=== PATIENT | female | born 1990 | race Two or more races ===

== ENCOUNTER 2022-09-28 12:10 | Observation (INO) | payer MEDICAID ==
[~2022-09-28] VITALS: Ht 157.5 cm; Wt 81.6 kg
== END 2022-09-28 13:30 | disposition home or self-care (01) ==
LOC: UNDOADMOB 12:10 → LDRP 12:10 → UNDODISOB 13:30
PROVIDERS: ADMIT Obstetrics & Gynecology; ATTEND Obstetrics & Gynecology
DX: O26.892 Other specified pregnancy related conditions, second trimester (principal); R10.2 Pelvic and perineal pain; R10.30 Lower abdominal pain, unspecified; Z3A.26 26 weeks gestation of pregnancy
CPT/HCPCS: 59025; 81002; G0378

== ENCOUNTER 2023-04-02 21:23 | Inpatient (IN) | payer MEDICAID ==
[~2023-04-02] VITALS: Ht 157.5 cm; Wt 71.3 kg
[2023-04-02 22:03] LABS: Basophils # (auto) 0 10 ^3/uL (0-0.2); Basophils % (auto) 0.2 % (0.0-2.0); Eosinophils # (auto) 0 10 ^3/uL (0-0.8); Hematocrit 40.7 % (36.0-46.0); Hemoglobin 13.5 g/dL (12.2-16.2); Lymphocytes # (auto) 1.4 10 ^3/uL (0.4-5.4); Lymphocytes % (auto) 8.4 % (10.0-50.0); Mean Corpuscular Hemoglobin 28.5 pg (28.0-32.0); Mean Corpuscular Hgb Conc. 33.1 g/dL (32.0-36.0); Mean Corpuscular Volume 86.2 fL (80.0-100.0); Monocytes # (auto) 0.6 10 ^3/uL (0-1.3); Monocytes % (auto) 3.5 % (0.0-12.0); Neutrophils # (auto) 14.1 10 ^3/uL (1.6-8.6); Neutrophils % (auto) 87.9 % (37.0-80.0); Red Blood Cells 4.73 10^6/uL (4.0-5.20); Red Cell Distribution Width 15.3 % (11.8-14.3); White Blood Cell 16.1 10^3/uL (4.4-10.8)
[2023-04-02] MEDS: SODIUM CHLORIDE 0.9% 1,000 ML IV ONE (22:06)
[2023-04-02 22:12] LABS: Chloride 107 mmol/L (98-107); Potassium 3.1 mmol/L (3.5-5.1); Sodium 135 mmol/L (136-145)
[2023-04-02 22:13] LABS: Anion Gap 9 (5-15); Calcium 9.6 mg/dL (8.5-10.1); Carbon Dioxide 19 mmol/L (20-30)
[2023-04-02 22:18] LABS: BUN/Creatinine Ratio 11.1 (10.0-20.0); Blood Urea Nitrogen 8 mg/dL (9-23); Glucose 104 mg/dL (74-106)
[2023-04-02 22:22] VITALS: PULSE 103; RESP 16; O2SAT 96
[2023-04-02] MEDS: cefTRIAXone 1GM/50ML D5W 50 ML IV ONE (22:54)
[2023-04-02 23:19] LABS: Urine Bacteria NONE SEEN /hpf (None Seen); Urine Blood Negative /uL (Negative); Urine Clarity Clear (Clear); Urine Color Colorless (Yellow); Urine Protein, UAD Negative (Negative); Urine Specific Gravity 1.004 (1.001-1.035); Urine Urobilinogen Normal (Negative); Urine WBC 1 /hpf (0 - 5)
[2023-04-02 23:46] LABS: COVID19 ANTIGEN SOFIA FIA NEGATIVE (NEGATIVE)
[2023-04-03] MEDS: ONDANSETRON HCL 4 MG/2 ML VIAL IV ONE (00:20)
[2023-04-03] MEDS: MORPHINE SULFATE INJ 2 MG/ml SYRG IV ONE (00:24)
[2023-04-03] MEDS: POTASSIUM CHL 20MEQ/100ML 100 ML IV ONE (01:00)
[2023-04-03] MEDS ORDERED: ONDANSETRON HCL 4 MG/2 ML VIAL IV PRN (05:30)
[2023-04-03] MEDS ORDERED: MORPHINE SULFATE INJ 2 MG/ml SYRG IV PRN (05:30)
[2023-04-03] MEDS ORDERED: NITROGLYCERIN 0.4 MG SL TAB SL PRN (05:30)
[2023-04-03] MEDS: LACTATED RINGER'S 1,000 ML IV ONE (05:51)
[2023-04-03] MEDS: ACETAMINOPHEN 325 MG TAB PO PRN (05:53)
[2023-04-03 07:30] VITALS: PULSE 99; RESP 16; O2SAT 96
[2023-04-03] MEDS: IBUPROFEN 600 MG TAB PO ONE (09:35)
[2023-04-03 19:27] VITALS: PULSE 80; RESP 11; O2SAT 98
[2023-04-03] MEDS: cefTRIAXone 1GM/50ML D5W 50 ML IV SCH (23:13)
[2023-04-04 00:05] VITALS: BP 103/61; PULSE 76; RESP 17; TEMP 98.3; O2SAT 97
[2023-04-04] MEDS: TEMAZEPAM 15 MG CAP PO PRN (00:13)
[2023-04-04 05:00] VITALS: BP 130/73; PULSE 82; RESP 18; TEMP 98.2; O2SAT 98
[2023-04-04 06:21] LABS: Basophils # (auto) 0 10 ^3/uL (0-0.2); Basophils % (auto) 0.3 % (0.0-2.0); Eosinophils # (auto) 0.2 10 ^3/uL (0-0.8); Eosinophils % (auto) 1.4 % (0.0-7.0); Hematocrit 35.3 % (36.0-46.0); Hemoglobin 11.7 g/dL (12.2-16.2); Lymphocytes # (auto) 2.6 10 ^3/uL (0.4-5.4); Lymphocytes % (auto) 22.5 % (10.0-50.0); Mean Corpuscular Hemoglobin 28.5 pg (28.0-32.0); Mean Corpuscular Hgb Conc. 33.1 g/dL (32.0-36.0); Monocytes # (auto) 0.9 10 ^3/uL (0-1.3); Monocytes % (auto) 7.5 % (0.0-12.0); Neutrophils # (auto) 7.9 10 ^3/uL (1.6-8.6); Neutrophils % (auto) 68.3 % (37.0-80.0); Red Cell Distribution Width 15.2 % (11.8-14.3); White Blood Cell 11.5 10^3/uL (4.4-10.8)
[2023-04-04 06:26] LABS: Chloride 111 mmol/L (98-107); Potassium 3.7 mmol/L (3.5-5.1); Sodium 142 mmol/L (136-145)
[2023-04-04 06:27] LABS: Anion Gap 6 (5-15); Calcium 9.2 mg/dL (8.5-10.1); Carbon Dioxide 25 mmol/L (20-30)
[2023-04-04 06:32] LABS: BUN/Creatinine Ratio 12.3 (10.0-20.0); Blood Urea Nitrogen 7 mg/dL (9-23); Glucose 82 mg/dL (74-106)
[2023-04-04 08:00] VITALS: PULSE 78; RESP 18; O2SAT 96
[2023-04-04 09:00] VITALS: BP 108/71; PULSE 78; RESP 17; TEMP 97.7; O2SAT 96
[2023-04-04] MEDS ORDERED: LEVO500T91 PO (11:55)
[2023-04-04 12:44] VITALS: BP 110/78; PULSE 85; RESP 17; TEMP 98.1; O2SAT 97
== END 2023-04-04 13:53 | disposition home or self-care (01) | DRG 720 ==
LOC: ER 21:23 → TELE 04-03 05:22 → TELE-EAST 04-03 05:22
PROVIDERS: ADMIT Nurse Practitioner; ATTEND Internal Medicine
DX: A41.9 Sepsis, unspecified organism (principal); I95.9 Hypotension, unspecified; E87.6 Hypokalemia; Z20.822 Contact with and (suspected) exposure to COVID-19; Z83.3 Family history of diabetes mellitus
CPT/HCPCS: 36415; 80048; 81001; 83605; 84702; 85025; 87040; 87426; 93005; 96361; 96365; 96367; 96375; G0378; J2405; J3480

== ENCOUNTER 2024-02-29 15:59 | Emergency (ER) | payer MEDICAID ==
[~2024-02-29] VITALS: Ht 157.5 cm; Wt 73.0 kg
[~2024-02-29 15:59] MED LIST: LEVO500T91 PO
--- NOTE | 2024-02-29 16:50 | ED.PDOC ---
Ana Rosa. trauma (HPI) HPI Comments 33 y.o female presents to the ED for a chief complaint of right forearm and elbow pain s/p trauma 2-3 days ago. Patient reports hitting her elbow on a hard surface and since has not been able to extend her arm past 45 degree. Patient denies any numbness or tingling sensation to pain site. No medical history or allergies reported. Time Seen by MD: 16:36 Reviewed notes: Nurses Notes, Medications, Allergies Allergies: Coded Allergies: NO KNOWN ALLERGIES (Unverified , 04/02/23) Home Meds Active Scripts Levofloxacin Hemihydrate (LEVAQUIN 500 MG) 500 Mg Tab, 1 TAB PO DAILY, #7 TAB Prov:TIEN HERNANDEZ MD 04/04/23 Information Source: Patient Mode of Arrival: Ambulatory Severity: Moderate Timing: Days Duration: Since onset Location: (R) Elbow, (R) Forearm Location of laceration: None Mechanism: Blunt trauma Past Medical History PAST MEDICAL HISTORY: Denies Surgical History: Denies all surgeries MEDICAL AFFAIRS LEADER History: Denies all MEDICAL 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 LEADER Hx Family History Family History: Family hx of DM Social History Smoker: Non-Smoker Alcohol: Denies ETOH Use Drugs: Denies Drug Use Lives In: Home Constitutional: denies: chills, diaphoresis, fatigue, fever, malaise, sweats, weakness, others EENTM: denies: blurred vision, double vision, ear bleeding, ear discharge, ear drainage, ear pain, ear ringing, eye pain, eye redness, hearing loss, mouth p ain, mouth swelling, nasal discharge, nose bleeding, nose congestion, nose pain, photophobia, tearing, throat pain, throat swelling, voice changes, others Respiratory: denies: cough, hemoptysis, orthopnea, SOB at rest, shortness of br eath, SOB with excertion, stridor, wheezing, others Cardiovascular: denies: chest pain, dizzy spells, diaphoresis, Dyspnea on exertion, edema, irregular heart beat, left arm pain, lightheadedness, palpitations, PND, syncope, others Gastrointestinal: denies: abdomen distended, abdominal pain, blood streaked bowels, constipated, diarrhea, dysphagia, difficulty swallowing, hematemesis, melena, nausea, poor appetite, poor fluid intake, rectal bleeding, rectal pain, vomiting, others Genitourinary: denies: abnormal vagina bleeding, burning, dyspareunia, dysuria, flank pain, frequency, hematuria, incontinence, pain, , vagina discharge, urgency, others Neurological: denies: dizziness, fainting, headache, left sided numbness, left sided weakness, numbness, paresthesia, pre-existing deficit, right sided numbness, right sided weakness, seizure, speech problems, tingling, tremors, weakness, others Musculoskeletal: reports: others (right forearm and elbow pain ); denies: back pain, gout, joint pain, joint swelling, muscle pain, muscle stiffness, neck pain Integumetry: denies: bruises, change in color, change in hair/nails, dryness, laceration, lesions, lumps, rash, wounds, others Allergic/Immunocompromised: denies: Difficulty Healing, Frequent Infections, Hives, Itching, others Hematologic/Lymphatic: denies: anemia, blood clots, easy bleeding, easy bruising, swollen glands, others Endocrine: denies: excessive hunger, excessive sweating, excessive thirst, excessive urination, flushing, intolerance to cold, intolerance to heat, unexplained weight gain, unexplained weight loss, others Psychiatric: denies: anxiety, bipolar disorder, depression, hopeless, panic disorder, schizophrenia, sleepless, suicidal, others All Other Systems: Reviewed and Negative Physical Exam General Appearance: No Apparent Distress, Normal HEENT: Normal ENT Inspection, Pharynx Normal, TMs Normal Neck: Full Range of Motion, Non-Tender, Normal, Normal Inspection Respiratory: Chest Non-Tender, Lungs Clear, No Accessory Muscle Use, No Respiratory Distress, Normal Breath Sounds Cardiovascular: No Edema, No JVD, No Murmur, No Gallop, Normal Peripheral Pulses, Regular Rate/Rhythm Breast Exam: Deferred Gastrointestinal: No Organomegaly, Non Tender, No Pulsatile Mass, Normal Bowel Sounds, Soft Genitalia: Deferred Pelvic: Deferred Rectal: Deferred Extremities: Tender (right forearm/elbow ) Musculoskeletal : Location: Right Extremity Location: Arm, Elbow Apperance: Limited ROM, Tenderness: Moderate 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 Was a procedure done?: No Differential Diagnosis Multiple Trauma: Fractures, Contusion X-Ray, Labs, Meds, VS Vital Signs Date Time Temp Pulse Resp B/P (MAP) Pulse Ox O2 Delivery O2 Flow Rate FiO2 02/29/24 16:46 98.7 87 16 105/70 (82) 99 Time of 1ST Reevaluation: 16:45 Reevaluation 1ST: Unchanged Time of 2ND Reevaluation: 18:45 Reevaluation 2ND: Improved Patient Education/Counseling: Diagnosis, Treatment, Prognosis Family Education/Counseling: No Family Present Additional Information The following tests were ordered, and results were reviewed by me: X ray I reviewed and agreed with the following test results read by other providers:X ray I discussed treatment and results with medical personnel and patient [place] [address] Ph: [phone] DIAGNOSTIC IMAGING Diagnostic Imaging Report : [id number] Signed PATIENT: DALLAS ISAAC ACCT: [id number] UNIT: [id number] : 1990 LOC: ER ROOM / BED: / AGE / SEX: 33 / F ADM STATUS: REG ER SERVICE 1641 ORDERING PHYSICIAN: AGUSTIN JEREZ MD PROCEDURE(s): RELB3 - R ELBOW 3 VIEW XRAY REASON: unable to extend RIGHT elbow ORDER NUMBER(s): [id number], ACCESSION NUMBER(s): [id number] CLINICAL INDICATION: unable to extend RIGHT elbow TECHNIQUE: 4 radiographic views of the right elbow were obtained. Comparison: None FINDINGS/IMPRESSION: There is no evidence of acute fracture or dislocation. The visualized joint space is well maintained. The alignment is anatomical. There is no radiopaque foreign body. ATED BY: NERISSA PRADHAN DO DICTATED DATE/TIME: 02/29/241704 SIGNED BY: NERISSA PRADHAN DO SIGNED DATE/TIME: 02/29/241704 CC: Departure 1 Departure Time of Disposition: 18:45 (I personally reviewed and interpreted the imaging studies. I reviewed the results with the patient and using shared decision making we decided on outpatient management with closed outpatient follow up. I did notify the patient that there was a risk that their condition could worsen and they agreed to immediately return to the Emergency Department for any worsening symptoms or concerns. ) Impression: Primary Impression: Right arm pain Disposition: HOME / SELF CARE / HOMELESS Condition: Stable Discharged With: Self Critical Care Note Critical Care Time?: No Stability Stability form required: No I personally scribed for AGUSTIN JEREZ MD ([email or web address]) on 02/29/24 at 16:50. Electronically submitted by Donna Morales ([facility]). I personally scribed for AGUSTIN JEREZ MD ([email or web address]) on 02/29/24 at 17:37. Electronically submitted by Donna Morales ([facility]). AGUSTIN JEREZ MD Feb 29, 2024 16:50 TORRIE CARDONA MD Feb 29, 2024 18:48
--- NOTE | 2024-02-29 17:07 | DVH ---
CLINICAL INDICATION: unable to extend RIGHT elbow TECHNIQUE: 4 radiographic views of the right elbow were obtained. Comparison: None FINDINGS/IMPRESSION: There is no evidence of acute fracture or dislocation. The visualized joint space is well maintained. The alignment is anatomical. There is no radiopaque foreign body.
[2024-02-29 18:46] VITALS: BP 147/85; PULSE 80; RESP 17; TEMP 98.6; O2SAT 98
== END 2024-02-29 18:49 | disposition home or self-care (01) ==
LOC: ER 15:59
DX: M25.521 Pain in right elbow (principal); M79.631 Pain in right forearm; Z79.899 Other long term (current) drug therapy; W22.8XXA Striking against or struck by other objects, initial encounter; Y93.89 Activity, other specified; Y92.89 Other specified places as the place of occurrence of the external cause; Y99.8 Other external cause status
CPT/HCPCS: 73080

== ENCOUNTER 2024-06-23 11:16 | Emergency (ER) | payer MEDICAID ==
[~2024-06-23] VITALS: Ht 157.5 cm; Wt 69.1 kg
[2024-06-23 11:26] VITALS: TEMP 98.3
--- NOTE | 2024-06-23 11:30 | ECG ---
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
--- NOTE | 2024-06-23 11:40 | ED.PDOC ---
SOB-HPI HPI Comments 33y F who presents to the ED for chief complaint of cough. Pt states she has been cough for the past 2 days.Pt states she and family has been sick for the past few days and went to urgent care 2 days prior and daughter tested positive for FLU B. Pt and family was placed on Tamiflu and promethazine. Pt states since last night PM, she started to have substernal chest pain. Pt states the pain is non-radiating, with noted exacerbation of pain with deep breaths. Pt otherwise denies phlegm, nausea, vomiting, fever, or chills. Pt otherwise has noted 02 sat of 97% on room air with otherwise all other vitals in normal range.Pt otherwise denies any other symptoms at this time. Chief Complaint: Cough Time Seen by MD: 11:37 Reviewed notes: Medications, Allergies Information Source: Patient Mode of Arrival: Ambulatory Brought in by: self Severity: Moderate Timing: Days Duration: Since onset Context: At Rest PE Risk Factors: None History of: Recent URI Prehospital treatment: Treatment (tamiflu) Modifying Factors: Nothing Associated Signs and Symptoms: Cough, Other (chest pain) Quality: Pressure Radiation: No Radiation Location: Substernal Past Medical History PAST MEDICAL HISTORY: Denies Surgical History: Denies all surgeries MEDICAL ATTENDANT History: Denies all MEDICAL ATTENDANT Hx Family History Family History: Family hx of DM Social History Smoker: Non-Smoker Alcohol: Denies ETOH Use Drugs: Denies Drug Use Lives In: Home Constitutional: denies: chills, diaphoresis, fatigue, fever, malaise, sweats, weakness, others EENTM: denies: blurred vision, double vision, ear bleeding, ear discharge, ear drainage, ear pain, ear ringing, eye pain, eye redness, hearing loss, mouth pain, mouth swelling, nasal discharge, nose bleeding, nose congestion, nose pain, photophobia, tearing, throat pain, throat swelling, voice changes, others Respiratory: reports: cough; denies: hemoptysis, orthopnea, SOB at rest, shortness of breath, SOB with excertion, stridor, wheezing, others Cardiovascular: reports: chest pain; denies: dizzy spells, diaphoresis, Dyspnea on exertion, edema, irregular heart beat, left arm pain, lightheadedness, palpitations, PND, syncope, others Gastrointestinal: denies: abdomen distended, abdominal pain, blood streaked bowels, constipated, diarrhea, dysphagia, difficulty swallowing, hematemesis, melena, nausea, poor appetite, poor fluid intake, rectal bleeding, rectal pain, vomiting, others Genitourinary: denies: abnormal vagina bleeding, burning, dyspareunia, dysuria, flank pain, frequency, hematuria, incontinence, pain, , vagina discharge, urgency, others Neurological: denies: dizziness, fainting, headache, left sided numbness, left sided weakness, numbness, paresthesia, pre-existing deficit, right sided numbness, right sided weakness, seizure, speech problems, tingling, tremors, weakness, others Musculoskeletal: denies: back pain, gout, joint pain, joint swelling, muscle pain, muscle stiffness, neck pain, others Integumetry: denies: bruises, change in color, change in hair/nails, dryness, laceration, lesions, lumps, rash, wounds, others Allergic/Immunocompromised: denies: Difficulty Healing, Frequent Infections, Hives, Itching, others Hematologic/Lymphatic: denies: anemia, blood clots, easy bleeding, easy bruising, swollen glands, others Endocrine: denies: excessive hunger, excessive sweating, excessive thirst, excessive urination, flushing, intolerance to cold, intolerance to heat, unexplained weight gain, unexplained weight loss, others Psychiatric: denies: anxiety, bipolar disorder, depression, hopeless, panic disorder, schizophrenia, sleepless, suicidal, others All Other Systems: Reviewed and Negative Physical Exam General Appearance: No Apparent Distress HEENT: Normal ENT Inspection, Pharynx Normal, TMs Normal Neck: Full Range of Motion, Non-Tender, Normal, Normal Inspection Respiratory: Chest Non-Tender, Lungs Clear, No Accessory Muscle Use, No Re spiratory Distress, Normal Breath Sounds Cardiovascular: No Edema, No JVD, No Murmur, No Gallop, Normal Peripheral Pulses, Regular Rate/Rhythm Breast Exam: Deferred Gastrointestinal: No Organomegaly, Non Tender, No Pulsatile Mass, Normal Bowel Sounds, Soft Genitalia: Deferred Pelvic: Deferred Rectal: Deferred Extremities: No calf tenderness, Normal capillary refill, Normal inspection, Normal range of motion, Non-tender, No pedal edema Musculoskeletal : Apperance: Normal 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 Was a procedure done?: No Differential Dx Differential Diagnosis: Bronchitis, Pneumonia, Respiratory Distress, Pharyngitis, URI Comments viral syndrome X-Ray, Labs, Meds, VS Vital Signs Date Time Temp Pulse Resp B/P (MAP) Pulse Ox O2 Delivery O2 Flow Rate FiO2 06/23/24 12:54 96 18 98 Room Air 06/23/24 12:54 90 18 98/65 (76) 99 06/23/24 11:53 88 06/23/24 11:26 98.3 90 18 125/87 (100) 98 98.3 The chest x-ray shows peribronchial cuffing but no sign of any pneumonia The patient was being discharged with a prescription of Zithromax The patient will return to the emergency department's condition worsens. The patient understands and agrees with the management. Images Reviewed?: Images reviewed and evaluated by me Time of 1ST Reevaluation: 12:05 Reevaluation 1ST: Unchanged Patient Education/Counseling: Diagnosis, Treatment, Prognosis, Need For Follow Up Family Education/Counseling: No Family Present Additional Information -Reviewed patient's previous visit(s): - The following tests were ordered, and results were reviewed by me: EKG x1, chest x-ray - Additional information was gathered from interviewing the following independent Historian: none - I reviewed and agreed with the following test results read by other provider: radiologist - I discussed treatments and results with medical personnel and: patient Comprehensive systems review obtained and negative except for what is stated in the HPI. Departure 1 Departure Time of Disposition: 13:17 Impression: Primary Impression: Acute bronchitis Qualified Codes: J20.9 - Acute bronchitis, unspecified Disposition: HOME / SELF CARE / HOMELESS Condition: Fair e-Prescriptions Azithromycin (Zithromax) 500 Mg Tab 1 TAB PO DAILY, #5 TAB Prov: JESSENIA BRADLEY MD 06/23/24 Discharged With: Self Critical Care Note Critical Care Time?: No Stability Stability form required: No Heart Score Heart Score: Heart Score Response (Comments) Value History Slightly Suspicious 0 EKG Normal 0 Age <45 0 Risk Factors No known risk factors 0 Troponin N/A 0 Total 0 I personally scribed for JESSENIA BRADLEY MD ([email or web address]) on 06/23/24 at 11:40. Electronically submitted by Andria Lagunas ([facility]). I personally scribed for JESSENIA BRADLEY MD ([email or web address]) on 06/23/24 at 11:53. Electronically submitted by Andria Lagunas ([facility]). JESSENIA BRADLEY MD Jun 23, 2024 11:40
[2024-06-23] MEDS ORDERED: AZIT500T PO (11:51)
[2024-06-23 12:54] VITALS: BP 98/65; PULSE 96; RESP 18; O2SAT 98
--- NOTE | 2024-06-23 13:40 | DVH ---
CHEST RADIOGRAPH Indication: cough Technique: Frontal and lateral view of the chest was obtained Comparison: 04/02/2023 FINDINGS: Lines and Tubes: None Lungs: Clear Pleura: No effusion. No pneumothorax. Cardiomediastinal contours: Unremarkable Bones: Unremarkable IMPRESSION: 1. No evidence of acute disease.
== END 2024-06-23 13:24 | disposition home or self-care (01) ==
LOC: ER 11:16
DX: J20.9 Acute bronchitis, unspecified (principal); R07.9 Chest pain, unspecified
CPT/HCPCS: 71046; 93005